=== PATIENT | male | born 1970 | race Two or more races ===

== ENCOUNTER 2017-02-15 14:17 | Emergency (ER) | payer OTHER ==
[2017-02-15 14:21] VITALS: TEMP 97.8; BMI 24.2
--- NOTE | 2017-02-15 15:42 | PDOC ---
History of Present Illness - General History Source: Patient Exam Limitations: No Limitations - History of Present Illness Initial Comments: 02/15/17 15:57 The patient is a 46 year old male with no significant past medical history who presents to the ED with cough, nasal congestion, sore throat, chest congestion, sneezing, runny nose and SOB on exertion since yesterday. He states that he woke up this morning with chest congestion, nasal congestion and SOB that has gotten better throughout the day. He reports chest pain when coughing or upon taking of a deep breath or turning to the left side. He reports yellow phlegm when coughing. He also reports diffuse body aches. He states that he took Nyquil PM yesterday to help with his symptoms. He denies any recent travel. SH - hookah smoker. Denies alcohol or illicit drug use. PMD - Dr. Burns <Rizwana Isaacs - Last Filed: 02/15/17 15:57> <John Vela - Last Filed: 02/15/17 16:48> - General Chief Complaint: Respiratory Stated Complaint: SOB, CHEST PAIN Past History <Rizwana Isaacs - Last Filed: 02/15/17 15:57> - Surgical History Abdominal Surgery: Yes (HEMMORRHOIDECTOMY) - Psycho/Social/Smoking Cessation Hx Anxiety: No Suicidal Ideation: No Smoking Status: No Smoking History: Never smoked Number of Cigarettes Smoked Daily: 1 Hx Alcohol Use: No Drug/Substance Use Hx: No Substance Use Type: None <John Vela - Last Filed: 02/15/17 16:48> - Past Medical History Allergies/Adverse Reactions: Allergies Allergy/AdvReac Type Severity Reaction Status Date / Time No Known Allergies Allergy Verified 02/15/17 14:21 Home Medications: Ambulatory Orders NK [No Known Home Medication] 02/15/17 Review of Systems - Review of Systems Constitutional: No: Chills, Fever, Night Sweats HEENTM: Yes: Nose Congestion, Throat Pain. No: Throat Swelling Respiratory: Yes: Cough. No: Shortness of Breath Cardiac (ROS): No: Chest Pain, Edema, Lightheadedness, Syncope ABD/GI: No: Diarrhea, Vomiting Integumentary: No: Rash Neurological: No: Headache All Other Systems: Reviewed and Negative <John Vela - Last Filed: 02/15/17 16:48> *Physical Exam - Vital Signs Last Vital Signs Temp Pulse Resp BP Pulse Ox 97.8 F 75 20 114/76 98 02/15/17 14:18 02/15/17 14:18 02/15/17 14:18 02/15/17 14:18 02/15/17 14:18 - Physical Exam Comments: 02/15/17 15:57 GENERAL: The patient is awake, alert, and fully oriented, in no acute distress. HEAD: Normal with no signs of trauma. EYES: Pupils equal, round and reactive to light, extraocular movements intact, sclera anicteric, conjunctiva clear with no pallor. ENT: Ears normal, nares patent, oropharynx clear without exudates. Moist mucous membranes. NECK: Normal range of motion, supple without lymphadenopathy, JVD, or masses. LUNGS: Breath sounds equal, clear to auscultation bilaterally. No wheeze/ crackles. HEART: Regular rate and rhythm, normal S1 and S2 without murmur or rub. ABDOMEN: Soft/nontender/nondistended. BS wnl. No guarding or rebound. No palpable masses. No hepatosplenomegaly. EXTREMITIES: Normal range of motion, no edema. No clubbing or cyanosis. No cords, erythema, or tenderness. NEUROLOGICAL: Cranial nerves II through XII grossly intact. Normal speech, normal gait. PSYCH: Normal mood, normal affect. SKIN: Warm, Dry, normal turgor, no rashes or lesions noted. <Rizwana Isaacs - Last Filed: 02/15/17 15:57> - Vital Signs Last Vital Signs Temp Pulse Resp BP Pulse Ox 97.8 F 75 20 114/76 98 02/15/17 14:18 02/15/17 14:18 02/15/17 14:18 02/15/17 14:18 02/15/17 14:18 <John Vela - Last Filed: 02/15/17 16:48> Heart Score/ECG Review - History History: Slightly suspicious - Electrocardiogram EKG: Normal - Age Age: 45-65 - Risk Factors Based on the list above the patient has:: No risk factors known - Troponin Troponin: </= normal limit - Score Heart Score - Total: 1 #1 ECG reviewed & interpreted by me at: 14:27 General ECG Interpretation: Sinus Rhythm, Normal Rate (73), Normal Intervals ( qtc 370), No acute ischemic changes (nonspecific T wave flattening v5) <John Vela - Last Filed: 02/15/17 16:48> ED Treatment Course - LABORATORY CBC & Chemistry Diagram: 02/15/17 15:58 02/15/17 16:07 - RADIOLOGY Radiology Studies Ordered: Category Date Time Status CHEST PA & LAT [RAD] Stat Radiology 02/15/17 15:41 Ordered <John Vela - Last Filed: 02/15/17 16:48> Medical Decision Making - Medical Decision Making 02/15/17 15:54 A portion of this note was documented by scribe services under my direction. I have reviewed the details of the note, within reason, and agree with the documentation with the following case summary and management plan written by me. 46-year-old male with no severe past medical history presents with URI symptoms of nasal congestion, sore throat, cough, upper body aches since yesterday. Presents today secondary to chest discomfort with coughing and sneezing, denies any history of exertional chest pain or dyspnea, no PE risk factors, no personal or family history of cardiac disease at an early age. Denies any smoking or drug use. Vital signs normal. Well-appearing. Occasional dry cough. Lungs are clear No edema 46-year-old male with likely viral URI/bronchitis, rule out pneumonia/influenza , not consistent with ACS. Labs, EKG Chest x-ray Influenza swab Reassurance, symptomatic treatment 02/15/17 16:41 WBC 12.9 with normal differential. Influenza negative. Chemistries/troponin pending. CXR pending. Patient was signed out to the oncoming ED physician to follow-up the results, reassess the patient, and dispo accordingly. <John Vela - Last Filed: 02/15/17 16:48> *DC/Admit/Observation/Transfer - Attestations Scribe Attestion: 02/15/17 15:58 Documentation prepared by MANINDER Tompkins, acting as medical assistant ob gyn for John Vela MD. <Rizwana Isaacs - Last Filed: 02/15/17 15:57> <John Vela - Last Filed: 02/15/17 16:48> Diagnosis at time of Disposition: Viral upper respiratory infection - Discharge Dispostion Condition at time of disposition: Stable - Referrals Referrals: Zak Burns [Primary Care Provider] -
[2017-02-15] MEDS ORDERED: KETOROLAC TROMETHAMINE 30 MG/1 ML VIAL IVPUSH ONE (15:54)
[2017-02-15] MEDS ORDERED: KETOROLAC TROMETHAMINE 30 MG/1 ML VIAL ONE (15:56)
[2017-02-15 16:11] LABS: BASOPHIL 0.3 % (0-2.0); EOSINOPHIL 1.3 % (0-4.5); MCH 29.3 pg (25.7-33.7); MCHC 33.8 g/dl (32.0-35.9); MEAN CELL VOLUME 86.7 fl (80-96); MEAN PLT VOLUME 8.3 fl (7.5-11.1); NEUTROPHILS 79.3 % (42.8-82.8); PLATELET COUNT 150 K/MM3 (134-434); RDW 13.8 % (11.9-15.9); WHITE BLOOD COUNT 12.9 K/mm3 (4.0-10.0)
[2017-02-15 16:32] LABS: INR 1.05 (0.82-1.09); PROTHROMBIN TIME (PATIENT) 11.6 SEC (9.98-11.88)
[2017-02-15 16:39] LABS: ALBUMIN 3.7 g/dl (3.4-5.0); ANION GAP 7 (8-16); BILIRUBIN,TOTAL 0.5 mg/dL (0.2-1.0); CALCIUM 8.2 mg/dL (8.5-10.1); CO2 26 mmol/L (21-32); GLUCOSE,RANDOM 89 mg/dL (74-106); MAGNESIUM 2.1 mg/dL (1.8-2.4); SGOT/AST 14 U/L (15-37); SGPT/ALT 17 U/L (12-78); TOT PROT 7.7 g/dl (6.4-8.2)
[2017-02-15 16:42] LABS: ALK PHOS 92 U/L (45-117); TROPONIN I < 0.02 ng/ml (0.00-0.05)
[2017-02-15] MEDS ORDERED: AZITHROMYCIN 250 MG TABLET (FP) PO ONE (17:27)
--- NOTE | 2017-02-15 17:33 | PDOC ---
*Physical Exam - Vital Signs Last Vital Signs Temp Pulse Resp BP Pulse Ox 97.8 F 75 20 114/76 98 02/15/17 14:18 02/15/17 14:18 02/15/17 14:18 02/15/17 14:18 02/15/17 14:18 ED Treatment Course - LABORATORY CBC & Chemistry Diagram: 02/15/17 15:58 02/15/17 16:07 - ADDITIONAL ORDERS Additional order review: Laboratory Results 02/15/17 02/15/17 16:07 16:07 INR 1.05 Sodium 139 Potassium 4.1 Chloride 106 Carbon Dioxide 26 Anion Gap 7 L BUN 14 Creatinine 1.0 Creat Clearance w eGFR > 60 Random Glucose 89 Calcium 8.2 L Magnesium 2.1 Total Bilirubin 0.5 AST 14 L ALT 17 Alkaline Phosphatase 92 Creatine Kinase 115 Troponin I < 0.02 Total Protein 7.7 Albumin 3.7 02/15/17 16:07 Influenza Types A,B Antigen (PAMELA) - Final Nasopharyngeal Swab - Final 02/15/17 15:58 RBC 4.95 MCV 86.7 MCHC 33.8 RDW 13.8 MPV 8.3 Neutrophils % 79.3 Lymphocytes % 12.1 D Monocytes % 7.0 Eosinophils % 1.3 Basophils % 0.3 - Medications Given in the ED: ED Medications Discontinued Medications Generic Name Dose Route Start Last Admin Trade Name Octavia PRN Reason Stop Dose Admin Ketorolac Tromethamine 30 mg 02/15/17 15:54 02/15/17 16:06 Toradol Injection - IVPUSH 02/15/17 15:55 30 mg ONCE ONE Administration Medical Decision Making - Medical Decision Making 02/15/17 17:29 Sign-out received from outgoing Emergency Physician Dr. Vela Pt interviewed and examined Ancillary studies reviewed Case discussed in detail with oncoming Emergency Physician including history, physical exam and ancillary studies. CBC, BMP 02/15/17 15:58 02/15/17 16:07 CMP Sodium 139 mmol/L (136-145) 02/15/17 16:07 Potassium 4.1 mmol/L (3.5-5.1) 02/15/17 16:07 Chloride 106 mmol/L (98-107) 02/15/17 16:07 Carbon Dioxide 26 mmol/L (21-32) 02/15/17 16:07 Anion Gap 7 (8-16) L 02/15/17 16:07 BUN 14 mg/dL (7-18) 02/15/17 16:07 Creatinine 1.0 mg/dL (0.7-1.3) 02/15/17 16:07 Creat Clearance w eGFR > 60 (>60) 02/15/17 16:07 Random Glucose 89 mg/dL (74-106) 02/15/17 16:07 Calcium 8.2 mg/dL (8.5-10.1) L 02/15/17 16:07 Magnesium 2.1 mg/dL (1.8-2.4) 02/15/17 16:07 Total Bilirubin 0.5 mg/dL (0.2-1.0) 02/15/17 16:07 AST 14 U/L (15-37) L 02/15/17 16:07 ALT 17 U/L (12-78) 02/15/17 16:07 Alkaline Phosphatase 92 U/L (45-117) 02/15/17 16:07 Creatine Kinase 115 IU/L (39-308) 02/15/17 16:07 Troponin I < 0.02 ng/ml (0.00-0.05) 02/15/17 16:07 Total Protein 7.7 g/dl (6.4-8.2) 02/15/17 16:07 Albumin 3.7 g/dl (3.4-5.0) 02/15/17 16:07 Influenza swab negative. Chest xray reviewed by me, pending official radiology read. No infiltrates Will treat as bronchitis. Azithromycin. Supportive care Follow up with PMD. Copy of the results given to the patient. I discussed the physical exam findings, ancillary test results and final diagnoses with the patient. I answered all of the patient's questions. The patient was satisfied with the care received and felt comfortable with the discharge plan and treatment plan. The patient will call their primary care physician within 24 hours to arrange follow-up and will return to the Emergency Department with any new, persistant or worsening symptoms. *DC/Admit/Observation/Transfer Diagnosis at time of Disposition: Bronchitis - Discharge Dispostion Disposition: HOME Condition at time of disposition: Improved Admit: No - Prescriptions Prescriptions: Azithromycin 250 mg PO DAILY #4 tablet Naproxen [Naprosyn -] 500 mg PO BID PRN #14 tablet PRN Reason: Pain/Fever - Referrals Referrals: Zak Burns [Primary Care Provider] - - Patient Instructions Printed Discharge Instructions: DI for Acute Bronchitis Additional Instructions: Please take 500 mg naproxen every 12 hours as needed for fever/pain. Please complete the azithromycin (antibiotic) daily for the next 4 days. Please finish all of the antibiotics. Drink plenty of fluids and rest. It will likely take several days before the symptoms improve. - Post Discharge Activity Work/School Note: Back to Work
[2017-02-15] MEDS ORDERED: AZITHROMYCIN 250 MG TABLET (FP) ONE (17:45)
[2017-02-15 17:48] VITALS: BP 111/78; PULSE 71
--- NOTE | 2017-02-16 16:22 | EKG ---
Test Reason : Blood Pressure : / mmHG Vent. Rate : 073 BPM Atrial Rate : 073 BPM P-R Int : 120 ms QRS Dur : 086 ms QT Int : 336 ms P-R-T Axes : 050 -06 000 degrees QTc Int : 370 ms NORMAL SINUS RHYTHM NONSPECIFIC T WAVE ABNORMALITY ABNORMAL ECG WHEN COMPARED WITH ECG OF 07-NOV-2014 21:46, VENT. RATE HAS INCREASED BY 25 BPM Confirmed by JOHN ROCKWELL MD ([id number]) on 02/16/2017 4:21:38 PM Referred By: Confirmed By:JOHN ROCKWELL MD
== END 2017-02-15 17:48 | disposition home or self-care (01) ==
LOC: JER 14:17
PROC: 3E03329 Introduction of Other Anti-infective into Peripheral Vein, Percutaneous Approach (ICD-10-PCS; principal; 2017-02-15)
PROC: 3E0333Z Introduction of Anti-inflammatory into Peripheral Vein, Percutaneous Approach (ICD-10-PCS; 2017-02-15)
DX: J06.9 Acute upper respiratory infection, unspecified (principal); B97.89 Other viral agents as the cause of diseases classified elsewhere
CPT/HCPCS: 36415; 71020-TC; 80053; 82550; 83735; 84484; 85025; 85610; 87804; 93005; 93010; 96374; 96375; 99285-25

== ENCOUNTER 2018-04-06 23:44 | Emergency (ER) | payer OTHER ==
[2018-04-07 00:31] VITALS: BP 121/78; PULSE 85; TEMP 97.5; BMI 25.8
--- NOTE | 2018-04-07 00:44 | PDOC ---
History of Present Illness - General Chief Complaint: Ear Problem Stated Complaint: EAR PAIN Time Seen by Provider: 04/07/18 00:10 History Source: Patient Exam Limitations: No Limitations - History of Present Illness Initial Comments: 04/07/18 00:41 Best Contact:[phone] PCP:N/a Pmhx:N/A Pshx:N/A Allergies:NKDA FH:N/A Social Hx: Cigarettes/ social Alcohol/ social Drugs/0 LMP:N/A 48-year-old male presents to the emergency department complaining of bilateral decreased hearing times one week without fever, chills, nausea/vomiting, headache, dizziness, lightheadedness, nasal congestion, rhinorrhea, sore throat PROCEDURE NOTE eloped prior to procedure Past History - Past Medical History Allergies/Adverse Reactions: Allergies Allergy/AdvReac Type Severity Reaction Status Date / Time No Known Allergies Allergy Verified 04/07/18 00:10 Home Medications: Ambulatory Orders Azithromycin 250 mg PO DAILY #4 tablet 02/15/17 Naproxen [Naprosyn -] 500 mg PO BID PRN #14 tablet 02/15/17 - Surgical History Abdominal Surgery: Yes (HEMMORRHOIDECTOMY) - Suicide/Smoking/Psychosocial Hx Smoking Status: No Smoking History: Never smoked Have you smoked in the past 12 months: No Number of Cigarettes Smoked Daily: 1 Information on smoking cessation initiated: No Hx Alcohol Use: No Drug/Substance Use Hx: No Substance Use Type: None Review of Systems - Review of Systems Able to Perform ROS?: Yes Comments:: 04/07/18 00:42 CONSTITUTIONAL: Absent: fever, chills, diaphoresis, generalized weakness, malaise, loss of appetite HEENT: +B/L ear decrease hearing Absent: rhinorrhea, nasal congestion, throat pain, throat swelling, difficulty swallowing, mouth swelling, ear pain, eye pain, visual Changes CARDIOVASCULAR: Absent: chest pain, loss of consciousness, palpitations, irregular heart rate, peripheral edema RESPIRATORY: Absent: cough, shortness of breath, dyspnea with exertion, orthopnea, wheezing, stridor, hemoptysis GASTROINTESTINAL: Absent: abdominal pain, abdominal distension, nausea, vomiting, diarrhea, constipation, melena, hematochezia GENITOURINARY: Absent: dysuria, frequency, urgency, hesitancy, hematuria, flank pain, genital pain MUSCULOSKELETAL: Absent: myalgia, arthralgia, joint swelling SKIN: Absent: rash, itching, pallor Is the patient limited Japanese proficient: No *Physical Exam - Vital Signs Last Vital Signs Temp Pulse Resp BP Pulse Ox 97.5 F L 85 19 121/78 98 04/07/18 00:05 04/07/18 00:05 04/07/18 00:05 04/07/18 00:05 04/07/18 00:05 - Physical Exam Comments: 04/07/18 00:43 GENERAL: Well developed, well nourished. Awake and alert. No acute distress. HEENT: +B/L cerumen impaction Normocephalic, atraumatic. PERRLA, EOMI. No conjunctival pallor. Sclera are non- icteric. Moist mucous membranes. Oropharynx is clear. NECK: Supple. Full ROM. No JVD. Carotid pulses 2+ and symmetric, without bruits. No thyromegaly. No lymphadenopathy. CARDIOVASCULAR: Regular rate and rhythm. No murmurs, rubs, or gallops. Distal pulses are 2+ and symmetric. PULMONARY: No evidence of respiratory distress. Lungs clear to auscultation bilaterally. No wheezing, rales or rhonchi. ABDOMINAL: Soft. Non-tender. Non-distended. No rebound or guarding. No organomegaly. Normoactive bowel sounds. MUSCULOSKELETAL Normal range of motion at all joints. No bony deformities or tenderness. No CVA tenderness. EXTREMITIES: No cyanosis. No clubbing. No edema. No calf tenderness. SKIN: Warm and dry. Normal capillary refill. No rashes. No jaundice. *DC/Admit/Observation/Transfer Diagnosis at time of Disposition: Impacted cerumen of both ears - Discharge Dispostion Disposition: ELOPED Condition at time of disposition: Fair - Referrals - Patient Instructions - Post Discharge Activity
== END 2018-04-07 02:09 | disposition left against medical advice (07) ==
LOC: JER 23:44
DX: H61.23 Impacted cerumen, bilateral (principal)
CPT/HCPCS: 99281-25

== ENCOUNTER 2018-08-28 05:10 | Emergency (ER) | payer OTHER ==
[2018-08-28] MEDS ORDERED: ALBUTEROL SO4 2.5/IPRATROPIUM 0.5 INH SOL 3 ML VIAL.NEB. NEB ONE ×3 (06:11→07:12)
--- NOTE | 2018-08-28 06:32 | PDOC ---
History of Present Illness - General Chief Complaint: Respiratory Stated Complaint: PAIN,COUGH Time Seen by Provider: 08/28/18 06:00 - History of Present Illness Initial Comments: 48 yo M w a hx of bronchitis is here with 2 days of shortness of breath, difficulty breathing, pleuritic chest pain, throat pain, and a productive cough. He states all of his symptoms began 2 days ago and have progressively worsened to the point where it is difficult for him to sleep. He came into the ER today because he wanted the shortness of breath to stop. He denies having a history of asthma but states many of his siblings have asthma. He denies having a history of COPD but does smoke hooka every day and had bronchitis once in the past. He denies having fevers, chills or infections. Denies headache, neck pain, back pain, abdominal pain, leg or ankle swelling. PCP: None Allergies: NKA, NKDA Social Hx: smokes hooka every day after work. Denies using alcohol or illicit substances. Past History - Past Medical History Allergies/Adverse Reactions: Allergies Allergy/AdvReac Type Severity Reaction Status Date / Time No Known Allergies Allergy Verified 08/28/18 06:33 Home Medications: Ambulatory Orders Azithromycin 250 mg PO DAILY #4 tablet 02/15/17 Naproxen [Naprosyn -] 500 mg PO BID PRN #14 tablet 02/15/17 - Surgical History Abdominal Surgery: Yes (HEMMORRHOIDECTOMY) - Suicide/Smoking/Psychosocial Hx Smoking Status: No Smoking History: Never smoked Have you smoked in the past 12 months: No Number of Cigarettes Smoked Daily: 1 Hx Alcohol Use: No Drug/Substance Use Hx: No Substance Use Type: None Review of Systems - Review of Systems Comments:: CONSTITUTIONAL: Absent: fever, no chills, no fatigue EYES: Absent: visual changes ENT: Absent: ear pain, no sore throat CARDIOVASCULAR: Present: Chest pain Absent: no palpitations RESPIRATORY: Present: cough, SOB GI: Absent: abdominal pain, no nausea, no vomiting, no constipation, no diarrhea GENITOURINARY: Absent: dysuria, no frequency, no hematuria MUSKULOSKELETAL: Absent: back pain, no arthralgia, no myalgia SKIN: Absent: rash NEURO: Absent: headache *Physical Exam - Physical Exam Comments: GENERAL: Well-appearing, well-nourished. No apparent distress. HEENT: The posterior oropharynx is erythematous. There are shotty lymph nodes on the R neck. Normocephalic, atraumatic. PERRL, EOM intact. CARDIOVASCULAR: Normal S1, S2. Regular rate and rhythm. PULMONARY: There are expiratory wheezes In the right lung [place]. No crackles, rales or rhonchi. ABDOMEN: Soft, non-distended, non-tender. EXTREMITIES: Normal ROM in all four extremities. No gross deformities. SKIN: Warm, dry. No rash NEUROLOGICAL: No focal neurological deficits. ED Treatment Course - LABORATORY CBC & Chemistry Diagram: 08/28/18 06:24 08/28/18 06:24 - RADIOLOGY Radiology Studies Ordered: Category Date Time Status CHEST PA & LAT [RAD] Stat Radiology 08/28/18 06:11 Ordered Medical Decision Making - Medical Decision Making 48 yo M w a hx of bronchitis is here with 2 days of shortness of breath, difficulty breathing, pleuritic chest pain, throat pain, and a productive cough. Vitals WNL. satting at 100% on RA. PE notable for R sided wheezing. DD includes but not limited to: Asthma, bronchitis, COPD, ACS, PNA, pneumothorax , URI Plan: Cbc, Cmp, Vbg, trop, Ekg, CXR, duoneb, re-assess. Patient is well appearing and likely does not need to stay in hospital after supportive symptomatic treatment. Signing out patient to day team. *DC/Admit/Observation/Transfer Diagnosis at time of Disposition: Dyspnea, URI (upper respiratory infection) - Discharge Dispostion Condition at time of disposition: Fair - Referrals Referrals: Ed Patten MD [Primary Care Provider] - - Patient Instructions - Post Discharge Activity
[2018-08-28 06:33] VITALS: TEMP 97.9; BMI 25.8
[2018-08-28 06:42] LABS: BASO % 0.9 % (0-2.0); EOS % 1.6 % (0-4.5); HEMATOCRIT 42.9 % (35.4-49); HEMOGLOBIN 14.7 GM/dL (11.7-16.9); LYMPH % 23.5 % (8-40); MCH 29.5 pg (25.7-33.7); MCHC 34.2 g/dl (32.0-35.9); MEAN CELL VOLUME 86.3 fl (80-96); MEAN PLT VOLUME 8.1 fl (7.5-11.1); MONO % 7.5 % (3.8-10.2); NEUT % 66.5 % (42.8-82.8); PLATELET COUNT 194 K/MM3 (134-434); RBC 4.97 M/mm3 (4.00-5.60); RDW 13.4 % (11.9-15.9); WHITE BLOOD COUNT 10.3 K/mm3 (4.0-10.0)
[2018-08-28 06:44] LABS: VENOUS PC02 51.1 mmHg (38-52); VENOUS PH 7.33 (7.32-7.42); VENOUS PO2 34.1 mmHg (28-48)
[2018-08-28 07:09] LABS: ALBUMIN 3.4 g/dl (3.4-5.0); ALK PHOS 100 U/L (45-117); ANION GAP 7 MMOL/L (8-16); BILIRUBIN,TOTAL 0.3 mg/dL (0.2-1); BLOOD UREA NITROGEN 20 mg/dL (7-18); CALCIUM 8.6 mg/dL (8.5-10.1); CHLORIDE 105 mmol/L (98-107); CO2 28 mmol/L (21-32); CREATININE 1.1 mg/dL (0.55-1.3); GLUCOSE,RANDOM 133 mg/dL (74-106); POTASSIUM 3.9 mmol/L (3.5-5.1); SGOT/AST 20 U/L (15-37); SGPT/ALT 19 U/L (13-61); SODIUM 140 mmol/L (136-145); TOT PROT 7.8 g/dl (6.4-8.2)
--- NOTE | 2018-08-28 07:26 | PDOC ---
*Physical Exam - Vital Signs Last Vital Signs Temp Pulse Resp BP Pulse Ox 97.9 F 79 18 100/65 97 08/28/18 05:15 08/28/18 05:15 08/28/18 05:15 08/28/18 05:15 08/28/18 05:15 ED Treatment Course - LABORATORY CBC & Chemistry Diagram: 08/28/18 06:24 08/28/18 06:24 - ADDITIONAL ORDERS Additional order review: Laboratory Results 08/28/18 08/28/18 06:24 06:24 VBG pH 7.33 POC VBG pCO2 51.1 POC VBG pO2 34.1 Mixed VBG HCO3 26.2 H Sodium 140 Potassium 3.9 Chloride 105 Carbon Dioxide 28 Anion Gap 7 L BUN 20 H Creatinine 1.1 Creat Clearance w eGFR > 60 Random Glucose 133 H Calcium 8.6 Total Bilirubin 0.3 AST 20 ALT 19 Alkaline Phosphatase 100 Troponin I < 0.02 Total Protein 7.8 Albumin 3.4 08/28/18 06:24 RBC 4.97 MCV 86.3 MCHC 34.2 RDW 13.4 MPV 8.1 Neutrophils % 66.5 Lymphocytes % 23.5 D Monocytes % 7.5 Eosinophils % 1.6 Basophils % 0.9 - Medications Given in the ED: ED Medications Discontinued Medications Generic Name Dose Route Start Last Admin Trade Name Octavia PRN Reason Stop Dose Admin Albuterol/Ipratropium 1 amp 08/28/18 06:11 08/28/18 06:14 Duoneb - NEB 08/28/18 06:12 1 amp ONCE ONE Administration Medical Decision Making - Medical Decision Making 08/28/18 07:26 Pt signed out to me by Dr. Al 48 yo M w a hx of bronchitis is here with 2 days of shortness of breath, difficulty breathing, pleuritic chest pain, throat pain, and a productive cough. COPD v. Asthma v. URI Waiting for troponin. 08/28/18 07:26 Trop negative. CXR: no acute pathology. EKG: nsr. PT most likely has URI. Pt hemodynamically stable, afebrile, can be dc home. Will give return precautions. Pt agreed to plan. *DC/Admit/Observation/Transfer Diagnosis at time of Disposition: Dyspnea Qualifiers: Dyspnea type: shortness of breath Qualified Code(s): R06.02 - Shortness of breath URI (upper respiratory infection) Qualifiers: URI type: unspecified viral URI Qualified Code(s): J06.9 - Acute upper respiratory infection, unspecified - Discharge Dispostion Disposition: HOME Condition at time of disposition: Good - Referrals Referrals: Ed Patten MD [Primary Care Provider] - - Patient Instructions Printed Discharge Instructions: DI for Viral Upper Respiratory Infection -- Adult Additional Instructions: You were seen here today for evaluation of shortness of breath and cough. All of your tests were normal. You have an upper respiratory tract infection most likely caused by a virus. Try to stay hydrated. You can take [id number] cough medications as needed. Come back to the emergency room if: cough gets worse, it becomes harder for you to breathe, you develop fever, chest pain gets worse, cough gets worse, or if any new concerning symptom develops. Thank you - Post Discharge Activity
[2018-08-28 07:59] VITALS: BP 104/80; PULSE 77
--- NOTE | 2018-08-28 08:37 | PDOC ---
Attending Attestation - Resident Resident Name: Edgar Martin - ED Attending Attestation I have performed the following: I have examined & evaluated the patient, The case was reviewed & discussed with the resident, I agree w/resident's findings & plan, Exceptions are as noted - HPI HPI: 08/28/18 08:36 2 days of productive cough, chest pain with cough, and sob - Physicial Exam PE: 08/28/18 08:36 Well appearing, NAD, AOx3 ? R sided wheeze on ausculcation - Medical Decision Making 08/28/18 08:37 Likely URI, consider pna, acs unlikely f/u labs, cxr, ekg
--- NOTE | 2018-08-28 12:31 | EKG ---
Test Reason : Blood Pressure : / mmHG Vent. Rate : 072 BPM Atrial Rate : 072 BPM P-R Int : 116 ms QRS Dur : 082 ms QT Int : 348 ms P-R-T Axes : 057 -35 -11 degrees QTc Int : 381 ms NORMAL SINUS RHYTHM LEFT AXIS DEVIATION ABNORMAL ECG Confirmed by MD BENITO, IKER ([id number]) on 08/28/2018 12:31:04 PM Referred By: Confirmed By:IKER OLIVER MD
== END 2018-08-28 07:59 | disposition home or self-care (01) ==
LOC: JER 05:10
PROC: 3E0F7GC Introduction of Other Therapeutic Substance into Respiratory Tract, Via Natural or Artificial Opening (ICD-10-PCS; principal; 2018-08-28)
DX: J06.9 Acute upper respiratory infection, unspecified (principal); R06.00 Dyspnea, unspecified
CPT/HCPCS: 36415; 71046-TC-FY; 80053; 82803; 84484; 85025; 93005; 93010; 94640; 99283-25

== ENCOUNTER 2018-11-19 11:25 | Emergency (ER) | payer OTHER ==
[2018-11-19 11:31] VITALS: BP 117/87; PULSE 66; TEMP 98.2; BMI 25.8
[2018-11-19] MEDS ORDERED: PANTOPRAZOLE SODIUM 40 MG VIAL IVPUSH ONE (11:43)
[2018-11-19] MEDS ORDERED: ACETAMINOPHEN 1000 MG/100 ML VIAL (NON FORMULARY) IVPB ONE (11:43)
[2018-11-19] MEDS ORDERED: FAMOTIDINE 20 MG/50 ML IVPB 20 MG/50 ML MG IVPB ONE ×2 (11:43→11:58)
[2018-11-19] MEDS ORDERED: SODIUM CHLORIDE 1,000 ML IV STA (11:43)
[2018-11-19] MEDS ORDERED: SUCRALFATE 1 GM TABLET (FP) PO ONE (11:43)
[2018-11-19] MEDS ORDERED: SUCRALFATE 1 GM/10 ML UNIT DOSE CUPS ONE (11:58)
[2018-11-19] MEDS ORDERED: ACETAMINOPHEN INJECTION 100 ML IVPB ONE (11:58)
[2018-11-19] MEDS ORDERED: PANTOPRAZOLE SODIUM 40 MG VIAL ONE (11:59)
--- NOTE | 2018-11-19 12:01 | PDOC ---
History of Present Illness - General Chief Complaint: Pain Stated Complaint: ABD PAIN Time Seen by Provider: 11/19/18 11:31 History Source: Patient Exam Limitations: No Limitations - History of Present Illness Initial Comments: 11/19/18 11:57 48 year old male with no PMH p/w epigastric pain x 2 days. Pt reported that he eats food typically heavier in oils. Noticed that some foods made the pain worse. Radiates to his throat, burning like sensation. No exertional component. no chest pain. No difficulty breathing, fevers, chills, diarrhea, vomiting. Took tums which relieved pain, but symptoms persisted. Past History - Past Medical History Allergies/Adverse Reactions: Allergies Allergy/AdvReac Type Severity Reaction Status Date / Time No Known Allergies Allergy Verified 11/19/18 11:27 Home Medications: Ambulatory Orders Famotidine [Pepcid] 20 mg PO BID PRN #20 tablet 11/19/18 Pantoprazole Sodium [Protonix] 40 mg PO DAILY #30 tablet. 11/19/18 COPD: No - Surgical History Abdominal Surgery: Yes (HEMMORRHOIDECTOMY) - Suicide/Smoking/Psychosocial Hx Smoking Status: No Smoking History: Current every day smoker Have you smoked in the past 12 months: No Number of Cigarettes Smoked Daily: 1 Information on smoking cessation initiated: Yes Hx Alcohol Use: No Drug/Substance Use Hx: No Substance Use Type: None Review of Systems - Review of Systems Able to Perform ROS?: Yes Comments:: 11/19/18 11:58 GENERAL/CONSTITUTIONAL: [No fever or chills. No weakness. No weight change.] HEAD, EYES, EARS, NOSE AND THROAT: [No change in vision. No ear pain or discharge. No sore throat.] CARDIOVASCULAR: [No chest pain or shortness of breath.] RESPIRATORY: [No cough, wheezing, or hemoptysis.] GASTROINTESTINAL: [No nausea, vomiting, diarrhea or constipation. No rectal bleeding.] + abdominal pain GENITOURINARY: [No dysuria, frequency, or change in urination.] MUSCULOSKELETAL: [No joint or muscle swelling or pain. No neck or back pain.] SKIN AND BREASTS: [No rash or easy bruising.] NEUROLOGIC: [No headache, vertigo, loss of consciousness, or loss of sensation.] PSYCHIATRIC: [No depression or anxiety.] ENDOCRINE: [No increased thirst. No abnormal weight change.] HEMATOLOGIC/LYMPHATIC: [No anemia, easy bleeding, or history of blood clots.] ALLERGIC/IMMUNOLOGIC: [No hives or skin allergy. No latex allergy.] *Physical Exam - Vital Signs Last Vital Signs Temp Pulse Resp BP Pulse Ox 98.2 F 66 18 117/87 99 11/19/18 11:25 11/19/18 11:25 11/19/18 11:25 11/19/18 11:25 11/19/18 11:25 - Physical Exam Comments: 11/19/18 11:59 GENERAL: Awake, alert, and fully oriented, in no acute distress HEAD: No signs of trauma EYES: PERRLA, EOMI, sclera anicteric, conjunctiva clear ENT: Auricles normal inspection, hearing grossly normal, nares patent, oropharynx clear without exudates. Moist mucosa NECK: Normal ROM, supple, no lymphadenopathy, JVD, or masses LUNGS: Breath sounds equal, clear to auscultation bilaterally. No wheezes, and no crackles HEART: Regular rate and rhythm, normal S1 and S2, no murmurs, rubs or gallops ABDOMEN: Soft, No guarding, no rebound. No masses. TTP epigastric. Negative cristobal. EXTREMITIES: Normal range of motion, no edema. No clubbing or cyanosis. No cords, erythema, or tenderness NEUROLOGICAL: Cranial nerves II through XII grossly intact. Normal speech, normal gait SKIN: Warm, Dry, normal turgor, no rashes or lesions noted. Moderate Sedation - Procedure Monitoring Vital Signs: Procedure Monitoring Vital Signs Temperature 98.2 F 11/19/18 11:25 Pulse Rate 66 11/19/18 11:25 Respiratory Rate 18 11/19/18 11:25 Blood Pressure 117/87 11/19/18 11:25 O2 Sat by Pulse Oximetry (%) 99 11/19/18 11:25 Heart Score/ECG Review #1 ECG reviewed & interpreted by me at: 12:05 11/19/18 13:06 NSR 58, no std/hermila, normal axis, normal intervals, TWI III, QTC 380 msec ED Treatment Course - LABORATORY CBC & Chemistry Diagram: 11/19/18 11:56 11/19/18 11:56 Medical Decision Making - Medical Decision Making 11/19/18 12:00 Vital Signs Temp Pulse Resp BP Pulse Ox 98.2 F 66 18 117/87 99 11/19/18 11:25 11/19/18 11:25 11/19/18 11:25 11/19/18 11:25 11/19/18 11:25 I suspect pt has gastritis/GERD. Never had an endoscopy. Will however obtain an ECG, labs including lipase. Trial GERD medications. If pt feels better and w/u negative, I feel comfortable d/cing patient home with meds and f/u with GI. 11/19/18 13:16 CBC, BMP 11/19/18 11:56 11/19/18 11:56 CMP Sodium 137 mmol/L (136-145) 11/19/18 11:56 Potassium 4.3 mmol/L (3.5-5.1) 11/19/18 11:56 Chloride 102 mmol/L (98-107) 11/19/18 11:56 Carbon Dioxide 27 mmol/L (22-28) 11/19/18 11:56 Anion Gap 8 MMOL/L (8-16) 11/19/18 11:56 BUN 14 mg/dl (7-18) 11/19/18 11:56 Creatinine 1.1 mg/dl (0.6-1.3) 11/19/18 11:56 Creat Clearance w eGFR > 60 (>60) 11/19/18 11:56 Random Glucose 109 mg/dl (74-106) H 11/19/18 11:56 Calcium 9.1 mg/dl (8.4-10.2) 11/19/18 11:56 Total Bilirubin 0.4 mg/dl (0.2-1.0) 11/19/18 11:56 AST 18 U/L (10-42) 11/19/18 11:56 ALT 11 U/L (10-40) 11/19/18 11:56 Alkaline Phosphatase 67 U/L (32-92) 11/19/18 11:56 Troponin I < 0.03 ng/ml (0.00-0.06) 11/19/18 11:56 Total Protein 7.4 g/dl (6.4-8.3) 11/19/18 11:56 Albumin 4.0 g/dl (3.5-5.0) 11/19/18 11:56 Lipase 262 U/L (73-393) 11/19/18 11:56 Pt reports complete relief with GERD medications. I discussed the physical exam findings, ancillary test results and final diagnoses with the patient. I answered all of the patient's questions. The patient was satisfied with the care received and felt comfortable with the discharge plan and treatment plan. The patient will call their primary care physician within 24 hours to arrange follow-up and will return to the Emergency Department with any new, persistant or worsening symptoms. *DC/Admit/Observation/Transfer Diagnosis at time of Disposition: Gastritis Qualifiers: Gastritis type: unspecified gastritis Chronicity: acute Gastritis bleeding: without bleeding Qualified Code(s): K29.00 - Acute gastritis without bleeding - Discharge Dispostion Disposition: HOME Condition at time of disposition: Stable - Prescriptions Prescriptions: Famotidine [Pepcid] 20 mg PO BID PRN #20 tablet PRN Reason: GERD Pantoprazole Sodium [Protonix] 40 mg PO DAILY #30 tablet.dr - Referrals Referrals: Ed Patten MD [Primary Care Provider] - Arik Alex MD [Staff Physician] - - Patient Instructions Printed Discharge Instructions: DI for Gastroesophageal Reflux Disease (GERD) Additional Instructions: Take 40 mg protonix daily as your maintenance medication. For additional relief, take a tablet of pepcid every 12 hours as needed. Please monitor your diet. Call and schedule an appointment with your GI doctor. Please give a copy of your blood work and EKG to your doctor. - Post Discharge Activity
[2018-11-19 12:08] LABS: BASO % 0.9 % (0-2.0); EOS % 0.8 % (0-4.5); HEMATOCRIT 43.5 % (35.4-49); HEMOGLOBIN 14.3 GM/dl (11.7-16.9); LYMPH % 14.7 % (8-40); MCH 29.1 pg (25.7-33.7); MEAN CELL VOLUME 88.4 fl (80-96); MEAN PLT VOLUME 7.7 fl (7.5-11.1); MONO % 5.9 % (3.8-10.2); NEUT % 77.7 % (42.8-82.8); PLATELET COUNT 217 K/MM3 (134-434); RBC 4.92 M/mm3 (4.00-5.60); RDW 12.2 % (11.9-15.9); WHITE BLOOD COUNT 9.2 K/mm3 (4.0-10.8)
[2018-11-19 12:23] LABS: ALK PHOS 67 U/L (32-92); ANION GAP 8 MMOL/L (8-16); BILIRUBIN,TOTAL 0.4 mg/dl (0.2-1.0); BLOOD UREA NITROGEN 14 mg/dl (7-18); CALCIUM 9.1 mg/dl (8.4-10.2); CHLORIDE 102 mmol/L (98-107); CO2 27 mmol/L (22-28); CREATININE 1.1 mg/dl (0.6-1.3); GLUCOSE,RANDOM 109 mg/dl (74-106); POTASSIUM 4.3 mmol/L (3.5-5.1); SGOT/AST 18 U/L (10-42); SGPT/ALT 11 U/L (10-40); SODIUM 137 mmol/L (136-145); TOT PROT 7.4 g/dl (6.4-8.3)
[2018-11-19 12:55] LABS: LIPASE 262 U/L (73-393)
--- NOTE | 2018-11-20 10:06 | EKG ---
Test Reason : Blood Pressure : / mmHG Vent. Rate : 058 BPM Atrial Rate : 058 BPM P-R Int : 116 ms QRS Dur : 082 ms QT Int : 388 ms P-R-T Axes : 062 -13 -09 degrees QTc Int : 380 ms SINUS BRADYCARDIA OTHERWISE NORMAL ECG WHEN COMPARED WITH ECG OF 28-AUG-2018 07:38, NONSPECIFIC T WAVE ABNORMALITY NO LONGER EVIDENT IN ANTEROLATERAL LEADS Confirmed by Evans Glover MD ([id number]) on 11/20/2018 10:05:51 AM Referred By: HERVE OMER Confirmed By:Evans Glover MD
== END 2018-11-19 13:35 | disposition home or self-care (01) ==
LOC: FER 11:25 → SUPCPDRO 11:25 → FER 13:35
PROC: 3E033NZ Introduction of Analgesics, Hypnotics, Sedatives into Peripheral Vein, Percutaneous Approach (ICD-10-PCS; principal; 2018-11-19)
PROC: 3E033GC Introduction of Other Therapeutic Substance into Peripheral Vein, Percutaneous Approach (ICD-10-PCS; 2018-11-19)
PROC: 3E0337Z Introduction of Electrolytic and Water Balance Substance into Peripheral Vein, Percutaneous Approach (ICD-10-PCS; 2018-11-19)
DX: K29.00 Acute gastritis without bleeding (principal); F17.210 Nicotine dependence, cigarettes, uncomplicated
CPT/HCPCS: 36415; 80053; 83690; 84484; 85025; 93005; 99285-25; J0131; J7030

== ENCOUNTER 2019-11-11 06:40 | Emergency (ER) | payer OTHER ==
[2019-11-11 07:17] VITALS: BMI 25.0
[2019-11-11] MEDS ORDERED: IBUPROFEN 600 MG TABLET (FP) PO ONE ×2 (07:46→08:18)
[2019-11-11 09:15] LABS: BASO % 0.6 % (0-2.0); EOS % 1.3 % (0-4.5); HEMATOCRIT 42.3 % (35.4-49); HEMOGLOBIN 14.6 GM/dL (11.7-16.9); LYMPH % 19.6 % (8-40); MCH 30.5 pg (25.7-33.7); MCHC 34.5 g/dl (32.0-35.9); MEAN CELL VOLUME 88.4 fl (80-96); MEAN PLT VOLUME 8.1 fl (7.5-11.1); MONO % 5.9 % (3.8-10.2); NEUT % 72.6 % (42.8-82.8); PLATELET COUNT 186 K/MM3 (134-434); RBC 4.78 M/mm3 (4.00-5.60); RDW 13.8 % (11.9-15.9)
[2019-11-11] MEDS ORDERED: METHOCARBAMOL 750 MG TAB PO ONE (09:19)
[2019-11-11 09:45] LABS: ALBUMIN 3.5 g/dl (3.4-5.0); ALK PHOS 77 U/L (45-117); ANION GAP 4 MMOL/L (8-16); BILIRUBIN,TOTAL 0.4 mg/dL (0.2-1); BLOOD UREA NITROGEN 13.1 mg/dL (7-18); CALCIUM 9.2 mg/dL (8.5-10.1); CHLORIDE 110 mmol/L (98-107); CO2 26 mmol/L (21-32); CREATININE 1.2 mg/dL (0.55-1.3); GLUCOSE,RANDOM 111 mg/dL (74-106); POTASSIUM 4.4 mmol/L (3.5-5.1); SGOT/AST 15 U/L (15-37); SGPT/ALT 26 U/L (13-61); SODIUM 140 mmol/L (136-145); TOT PROT 7.1 g/dl (6.4-8.2)
[2019-11-11] MEDS ORDERED: METHOCARBAMOL 500 MG TABLET ONE (10:35)
[2019-11-11 11:21] LABS: EPI CELLS 1.2 /HPF (0-5/HPF); HYALINE CASTS 0 /lpf (0-8); URINE APPEARANCE CLEAR; URINE BACTERIA 1.2 /hpf (NEGATIVE); URINE BILIRUBIN NEGATIVE (NEGATIVE); URINE COLOR YELLOW; URINE GLUCOSE (UA) NEGATIVE (NEGATIVE); URINE KETONE TRACE (NEGATIVE); URINE LEUK ESTERASE NEGATIVE (NEGATIVE); URINE NITRITE NEGATIVE (NEGATIVE); URINE PROTEIN 1+ (NEGATIVE); URINE RBC 6 /hpf (0-4); URINE WBC 2 /hpf (0-5)
--- NOTE | 2019-11-11 11:31 | PDOC ---
History of Present Illness - General Chief Complaint: Pain, Acute Stated Complaint: ABD PAIN, BACK PAIN Time Seen by Provider: 11/11/19 07:31 - History of Present Illness Initial Comments: 11/11/19 11:27 49 yo no PMH presenting with low back and b/l flank pain. 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 Took Tylenol 650mg 1 hour before ED arrival without initial relief, however, states that he feels better now than when the pain began. Denies CP, SOB, N/V, constipation/diarrhea, fevers/chills, MCDONALD, urinary symptoms , recent travel, recent illness. Past History - Past Medical History Allergies/Adverse Reactions: Allergies Allergy/AdvReac Type Severity Reaction Status Date / Time No Known Allergies Allergy Verified 11/11/19 07:16 Home Medications: Ambulatory Orders NK [No Known Home Medication] 11/11/19 COPD: No - Surgical History Abdominal Surgery: Yes (HEMMORRHOIDECTOMY) - Psycho Social/Smoking Cessation Hx Smoking Status: No Smoking History: Current every day smoker Have you smoked in the past 12 months: No Number of Cigarettes Smoked Daily: 1 Information on smoking cessation initiated: No 'Breaking Loose' booklet given: 11/19/18 Hx Alcohol Use: No Drug/Substance Use Hx: No Substance Use Type: None Review of Systems - Review of Systems Comments:: 11/11/19 11:30 GENERAL/CONSTITUTIONAL: No fever or chills. No weakness. HEAD, EYES, EARS, NOSE AND THROAT: No change in vision. No ear pain or discharge. No sore throat. CARDIOVASCULAR: No chest pain or shortness of breath. RESPIRATORY: No cough, wheezing, or hemoptysis. GASTROINTESTINAL: No nausea, vomiting, diarrhea or constipation. GENITOURINARY: No dysuria, frequency, or change in urination. MUSCULOSKELETAL: No joint or muscle swelling or pain. No neck or back pain. SKIN: No rash NEUROLOGIC: No headache, vertigo, loss of consciousness, or change in strength/ sensation. ENDOCRINE: No increased thirst. No abnormal weight change. HEMATOLOGIC/LYMPHATIC: No anemia, easy bleeding, or history of blood clots. ALLERGIC/IMMUNOLOGIC: No hives or skin allergy *Physical Exam - Vital Signs Last Vital Signs Temp Pulse Resp BP Pulse Ox 97.8 F 89 16 117/78 98 11/11/19 07:14 11/11/19 07:14 11/11/19 07:14 11/11/19 07:14 11/11/19 07:14 - Physical Exam 11/11/19 15:25 Gen: well-developed, well-nourished, NAD Neuro: AAOX4, CN II-XII intact, FTN intact, EOMI, PERRLA, 5/5 strength, SILT HEENT: atraumatic, normocephalic, dry mucous membranes Neck: trachea midline, supple CV: regular rate, regular rhythm, no murmurs, rubs, or gallops Pulm: CTA b/l, no wheezing Abd: soft, non-distended, mild RUQ tenderness MSK: full ROM, intact pulses Extr: no edema, no deformities Skin: warm, dry ED Treatment Course - LABORATORY CBC & Chemistry Diagram: 11/11/19 08:55 11/11/19 08:55 - ADDITIONAL ORDERS Additional order review: Laboratory Results 11/11/19 11/11/19 11/11/19 10:48 08:55 08:55 Sodium 140 Potassium 4.4 Chloride 110 H Carbon Dioxide 26 Anion Gap 4 L BUN 13.1 Creatinine 1.2 Est GFR (CKD-EPI)AfAm 81.23 Est GFR (CKD-EPI)NonAf 70.09 Random Glucose 111 H Calcium 9.2 Total Bilirubin 0.4 AST 15 ALT 26 Alkaline Phosphatase 77 Troponin I < 0.02 Total Protein 7.1 Albumin 3.5 Lipase 165 Urine Color Yellow Urine Appearance Clear Urine pH 5.0 Ur Specific [place] 1.030 Urine Protein 1+ H Urine Glucose (UA) Negative Urine Ketones Trace H Urine Blood 1+ H Urine Nitrite Negative Urine Bilirubin Negative Urine Urobilinogen 1.0 Ur Leukocyte Esterase Negative Urine WBC (Auto) 2 Urine RBC (Auto) 6 Urine Casts (Auto) 0 U Epithel Cells (Auto) 1.2 Urine Bacteria (Auto) 1.2 11/11/19 08:55 RBC 4.78 MCV 88.4 MCHC 34.5 RDW 13.8 MPV 8.1 Neutrophils % 72.6 Lymphocytes % 19.6 Monocytes % 5.9 Eosinophils % 1.3 Basophils % 0.6 - RADIOLOGY Radiology Studies Ordered: Category Date Time Status ABDOMEN & PELVIS CT W/O CONTR [CT] Stat CT Scan 11/11/19 11:27 Ordered - Medications Given in the ED: ED Medications Discontinued Medications Generic Name Dose Route Start Last Admin Trade Name Octavia PRN Reason Stop Dose Admin Ibuprofen 600 mg 11/11/19 07:46 11/11/19 08:20 Motrin - PO 11/11/19 07:47 600 mg ONCE ONE Administration Methocarbamol 750 mg 11/11/19 09:19 11/11/19 10:38 Robaxin - PO 11/11/19 09:20 750 mg ONCE ONE Administration Medical Decision Making - Medical Decision Making 11/11/19 12:57 Concern for possible kidney stones vs MSK pain vs cholecystitis vs ACS. - CBC, CMP - EKG, trop, CXR - CT scan abd/pelvis w/o contrast - UA - RUQ US - ibuprofen 600mg 11/11/19 15:22 CT shows contracted gallbladder with gallstones, linear basilar atelectasis bilaterally, hiatal hernia. US with cholelithiasis. Patient reassessed, states that he is completely asymptomatic. Discharge - Discharge Information Problems reviewed: Yes Clinical Impression/Diagnosis: Abdominal pain Condition: Improved Disposition: HOME - Follow up/Referral Referrals: Florentin Leiva MD [Staff Physician] - - Patient Discharge Instructions Patient Printed Discharge Instructions: DI for Abdominal Pain-Adult Additional Instructions: You were seen with abdominal pain. Your labs were unconcerning. Your imaging did show gallstones, which may have been the source of your pain. Please follow up with surgery outpatient; a number is included in this paperwork. Follow up with your primary care doctor within one week. Return to the ED if you develop worsening symptoms. - Post Discharge Activity
--- NOTE | 2019-11-11 11:43 | PDOC ---
Documentation entered by Noe Benavidez SCRIBE, acting as scribe for John Vela MD. John Vela MD: This documentation has been prepared by the Pramod huff Xhesika, SCRIBE, under my direction and personally reviewed by me in its entirety. I confirm that the documentation accurately reflects all work, treatment, procedures, and medical decision making performed by me. Attending Attestation - Resident Resident Name: Kirstin Albert - ED Attending Attestation I have performed the following: I have examined & evaluated the patient, The case was reviewed & discussed with the resident, I agree w/resident's findings & plan - HPI HPI: 11/11/19 09:24 The patient is a 49 year old male with no significant PMH of who presents to the emergency department for b/l flank pain since 2am. 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 Pt notes he feels constipated but had a normal BM yesterday. Pt states he took Tylenol for pain, with no improvement of symptoms. Back pain now resolved with residual epigastric pain The patient denies chest pain, shortness of breath, headache and dizziness. Denies fever, chills, cough, nausea, vomiting, diarrhea. Denies dysuria, frequency, urgency and hematuria. Allergies: NKDA Social history: Smokes hookah every night. - Physicial Exam PE: 11/11/19 11:38 Vital signs stable Alert, seated in stretcher, no acute distress Speaking full sentences, no jaundice or pallor, moist mucosa Heart is regular, lungs are clear Abdomen is soft/nondistended. Tender with some guarding in the epigastric/ right upper quadrant/right mid abdomen region, no rebound. No CVA tenderness, no pulsatile masses, no palpable hernia No rash No midline spine tenderness - Medical Decision Making 11/11/19 11:40 49-year-old male with no significant past medical history presents with back pain that radiated to abdomen, now with residual epigastric discomfort. Presentation seems atypical for ACS, abdominal exam does localize to the right mid/upper abdomen, raising some concern for GI etiology such as biliary colic, etiology such as renal stone is also on the differential. Less likely vascular, hemodynamically stable. Labs, urinalysis EKG CXR normal Right upper quadrant ultrasound CT of the abdomen and pelvis following urinalysis with elevated red blood cells Pain control Reassess Heart Score/ECG Review #1 ECG reviewed & interpreted by me at: 13:39 General ECG Interpretation: Sinus Rhythm, Normal Rate (64), Normal Intervals ( qtc 404), No acute ischemic changes
[2019-11-11 11:49] LABS: URINE CRYSTALS CALCIUM OXALATE /hpf
[2019-11-11 15:59] VITALS: BP 120/60; PULSE 81; TEMP 98.5
--- NOTE | 2019-11-12 10:21 | EKG ---
Test Reason : Blood Pressure : / mmHG Vent. Rate : 064 BPM Atrial Rate : 064 BPM P-R Int : 118 ms QRS Dur : 078 ms QT Int : 392 ms P-R-T Axes : 049 -27 -07 degrees QTc Int : 404 ms NORMAL SINUS RHYTHM NORMAL ECG Confirmed by MD Gabriel Edward ([id number]) on 11/12/2019 10:21:13 AM Referred By: Confirmed By:Linwood Gabriel MD
== END 2019-11-11 16:00 | disposition home or self-care (01) ==
LOC: JER 06:40
DX: R10.9 Unspecified abdominal pain (principal); K80.20 Calculus of gallbladder without cholecystitis without obstruction
CPT/HCPCS: 36415; 71046-TC-FY; 74176-TC; 76705-TC; 80053; 81003; 83690; 84484; 85025; 93005; 93010; 99284-25

== ENCOUNTER 2019-11-12 06:42 | Inpatient (IN) | payer OTHER ==
--- NOTE | 2019-11-12 07:16 | PDOC ---
Attending Attestation - Resident Resident Name: Kirstin Albert - ED Attending Attestation I have performed the following: I have examined & evaluated the patient, The case was reviewed & discussed with the resident, I agree w/resident's findings & plan, Exceptions are as noted - HPI HPI: 11/12/19 07:57 49yo male dx yesterday with gallstones with worsening RUQ pain. No assoc n/v/d. No dysuria. No cp/sob. Pt states pain in mid epigastric and RUQ region. No other complaints. - Physicial Exam PE: 11/12/19 07:58 Gen: aaox3, uncomfortable heart: +s1s2 reg lungs: cta b/l abd: soft, epigastric and RUQ ttp +murphys ext: no c/c/e - Medical Decision Making 11/12/19 07:59 a/p: 49yo male with recent dx of gallstones with worsening pain -concern for biliary colic -no assoc n/v/d this am -pt appears uncomfortable -repeat bedside ultrasound shows gallstones without acute sruthi -will send labs -resident discussed the case with surgery who recommends labs, HIDA and he will see patient in consult -will start ivf hydration, pain control, npo 11/12/19 08:59 dr diaz at the bedside recommends HIDA 11/12/19 09:00 mildly elevatd wbc- no shift normal lft PMD Dr. Patten - call placed to Dr. Mcmahon for admission 11/12/19 09:26 resident discussed the case with Dr. Pena who accepts pt to service Heart Score/ECG Review - ECG Intrepretation Comment:: 11/12/19 08:00 sinus at 54, l campoverde axis, t wave inversions iii, avf, no acute st changes 11/12/19 08:01 ekg unchanged from prio
[2019-11-12] MEDS ORDERED: ACETAMINOPHEN 1000 MG/100 ML VIAL (NON FORMULARY) IVPB ONE ×2 (07:17→07:26)
[2019-11-12] MEDS ORDERED: KETOROLAC TROMETHAMINE 30 MG/1 ML VIAL IVPUSH ONE (07:23)
[2019-11-12] MEDS ORDERED: SODIUM CHLORIDE 0.9% 1000 ML INFUS.BAG IV ONE (07:26)
[2019-11-12] MEDS ORDERED: FAMOTIDINE 20 MG/50 ML IVPB 20 MG/50 ML MG IVPB ONE ×2 (07:26→07:56)
[2019-11-12 07:34] VITALS: BMI 26.6
--- NOTE | 2019-11-12 07:35 | PDOC ---
History of Present Illness - General Chief Complaint: Pain Stated Complaint: ABD PAIN Time Seen by Provider: 11/12/19 07:12 - History of Present Illness Initial Comments: 11/12/19 08:50 49 yo no PMH presenting with RUQ abdominal pain. Noticeably, patient was seen here yesterday, found to have gallstones. Patient states that this pain is the same but more intense, 10/10 squeezing pain. States that it began around 0600 and he did not try any medication at home. Denies CP, SOB, N/V, constipation/diarrhea, fevers/chills, MCDONALD, urinary symptoms , recent travel, recent illness. Past History - Past Medical History Allergies/Adverse Reactions: Allergies Allergy/AdvReac Type Severity Reaction Status Date / Time No Known Allergies Allergy Verified 11/11/19 07:16 Home Medications: Ambulatory Orders Ibuprofen [Motrin -] 600 mg PO Q6H #45 tablet 11/12/19 COPD: No - Surgical History Abdominal Surgery: Yes (HEMMORRHOIDECTOMY) - Psycho Social/Smoking Cessation Hx Smoking Status: No Smoking History: Current every day smoker Have you smoked in the past 12 months: No Number of Cigarettes Smoked Daily: 1 'Breaking Loose' booklet given: 11/19/18 Hx Alcohol Use: No Drug/Substance Use Hx: No Substance Use Type: None Review of Systems - Review of Systems Comments:: 11/12/19 09:23 GENERAL/CONSTITUTIONAL: No fever or chills. No weakness. HEAD, EYES, EARS, NOSE AND THROAT: No change in vision. No ear pain or discharge. No sore throat. CARDIOVASCULAR: No chest pain or shortness of breath. RESPIRATORY: No cough, wheezing, or hemoptysis. GASTROINTESTINAL: No nausea, vomiting, diarrhea or constipation. GENITOURINARY: No dysuria, frequency, or change in urination. MUSCULOSKELETAL: No joint or muscle swelling or pain. No neck or back pain. SKIN: No rash NEUROLOGIC: No headache, vertigo, loss of consciousness, or change in strength/ sensation. ENDOCRINE: No increased thirst. No abnormal weight change. HEMATOLOGIC/LYMPHATIC: No anemia, easy bleeding, or history of blood clots. ALLERGIC/IMMUNOLOGIC: No hives or skin allergy *Physical Exam - Physical Exam 11/12/19 09:44 Gen: well-developed, well-nourished, in distress Neuro: AAOX4, CN II-XII intact, FTN intact, EOMI, PERRLA, 5/5 strength, SILT HEENT: atraumatic, normocephalic, dry mucous membranes Neck: trachea midline, supple CV: regular rate, regular rhythm, no murmurs, rubs, or gallops Pulm: CTA b/l, no wheezing Abd: soft, non-distended, RUQ tenderness, positive Rojas's sign MSK: full ROM, intact pulses Extr: no edema, no deformities Skin: warm, dry ED Treatment Course - LABORATORY CBC & Chemistry Diagram: 11/12/19 07:50 11/12/19 07:50 Medical Decision Making - Medical Decision Making 11/12/19 07:00 Concern for biliary colic. Will contact general surgery, get pre-surgical labs. - CBC, CMP - EKG, CXR - coags - T+S - Pepcid - ceftriaxone 1000mg - Ofirmev 11/12/19 07:[address] Leiva, recommends admit for HIDA scan and he will consult on the patient. Discharge - Discharge Information Problems reviewed: Yes Clinical Impression/Diagnosis: Cholecystitis with cholelithiasis Condition: Stable Disposition: HOME - Follow up/Referral - Patient Discharge Instructions - Post Discharge Activity
[2019-11-12] MEDS ORDERED: ACETAMINOPHEN INJECTION 100 ML IVPB ONE (07:56)
[2019-11-12 08:17] LABS: BASO % 0.5 % (0-2.0); EOS % 1.2 % (0-4.5); HEMATOCRIT 42.6 % (35.4-49); HEMOGLOBIN 14.8 GM/dL (11.7-16.9); MCH 30.4 pg (25.7-33.7); MCHC 34.8 g/dl (32.0-35.9); MEAN CELL VOLUME 87.3 fl (80-96); MONO % 6.6 % (3.8-10.2); NEUT % 72.7 % (42.8-82.8); PLATELET COUNT 197 K/MM3 (134-434); RBC 4.88 M/mm3 (4.00-5.60); WHITE BLOOD COUNT 10.4 K/mm3 (4.0-10.0)
[2019-11-12 08:21] LABS: INR 0.97 (0.83-1.09); PROTHROMBIN TIME (PATIENT) 11.4 SEC (9.7-13.0)
[2019-11-12 08:24] LABS: ACTIVATED PTT 35.7 SECONDS (25.2-36.5)
[2019-11-12 08:45] LABS: ALBUMIN 3.7 g/dl (3.4-5.0); BILIRUBIN,TOTAL 0.3 mg/dL (0.2-1); BLOOD UREA NITROGEN 15.2 mg/dL (7-18); CALCIUM 8.5 mg/dL (8.5-10.1); CREATININE 1.3 mg/dL (0.55-1.3); POTASSIUM 4.1 mmol/L (3.5-5.1); TOT PROT 7.4 g/dl (6.4-8.2)
[2019-11-12] MEDS ORDERED: CEFTRIAXONE 1,000 MG in DEXTROSE 5%-WATER - 50 ML IVPB ONE (08:54)
[2019-11-12] MEDS ORDERED: CEFTRIAXONE 1 GM/50 ML BAG ONE (09:02)
--- NOTE | 2019-11-12 10:30 | EKG ---
Test Reason : Blood Pressure : / mmHG Vent. Rate : 054 BPM Atrial Rate : 054 BPM P-R Int : 118 ms QRS Dur : 086 ms QT Int : 378 ms P-R-T Axes : 043 -36 -24 degrees QTc Int : 358 ms SINUS BRADYCARDIA WITH MARKED SINUS ARRHYTHMIA LEFT AXIS DEVIATION NONSPECIFIC T WAVE ABNORMALITY ABNORMAL ECG WHEN COMPARED WITH ECG OF 11-NOV-2019 13:39, NO SIGNIFICANT CHANGE WAS FOUND Confirmed by MD Harvey, Linwood ([id number]) on 11/12/2019 10:29:41 AM Referred By: Confirmed By:Linwood Gabriel MD
--- NOTE | 2019-11-12 10:42 | HP ---
Admitting History and Physical - Primary Care Physician PCP: Ed Patten - Admission Chief Complaint: Abdominal Pain History of Present Illness: Patient is a 49 y/o male with no significant past medical history. Patient complains of abdominal pain radiating to back. He was seen in ER on 11/11/19 for same chief complaint. Abd/Pelvic CT scan from 11/11/19 shows contracted gallbladder with gallstones, no evidence of acute cholecystitis. Patient was given referral to follow up with surgery and discharged home. Patient states he went home and ate dinner. He then woke up at 0600 to worsening abdominal pain radiating to back. Denies nausea, vomiting, or diarrhea. No loss of appetite. THere are no alleviating or exacerbating factors for his pain. History Source: Patient Limitations to Obtaining History: No Limitations - Past Surgical History Past Surgical History: Yes: None - Smoking History Smoking history: Current every day smoker Have you smoked in the past 12 months: No Aproximately how many cigarettes per day: 1 - Alcohol/Substance Use Hx Alcohol Use: No - Social History ADL: Independent History of Recent Travel: No Home Medications - Allergies Allergies/Adverse Reactions: Allergies Allergy/AdvReac Type Severity Reaction Status Date / Time No Known Allergies Allergy Verified 11/11/19 07:16 - Home Medications Home Medications: Ambulatory Orders NK [No Known Home Medication] 11/11/19 Review of Systems - Review of Systems Constitutional: reports: No Symptoms Eyes: reports: No Symptoms HENT: reports: No Symptoms Neck: reports: No Symptoms Cardiovascular: reports: No Symptoms Respiratory: reports: No Symptoms Gastrointestinal: reports: Abdominal Pain Genitourinary: reports: No Symptoms Breasts: reports: No Symptoms Reported Musculoskeletal: reports: Back Pain Integumentary: reports: No Symptoms Neurological: reports: No Symptoms Endocrine: reports: No Symptoms Hematology/Lymphatic: reports: No Symptoms Psychiatric: reports: No Symptoms Physical Examination Vital Signs: Vital Signs Temperature 97.7 F 11/12/19 09:55 Pulse Rate 73 11/12/19 09:55 Respiratory Rate 16 11/12/19 09:55 Blood Pressure 111/82 11/12/19 09:55 O2 Sat by Pulse Oximetry (%) 98 11/12/19 09:55 Constitutional: Yes: No Distress, Calm Eyes: Yes: Conjunctiva Clear HENT: Yes: Atraumatic Neck: Yes: Supple Cardiovascular: Yes: Regular Rate and Rhythm Respiratory: Yes: Regular, CTA Bilaterally Gastrointestinal: Yes: Normal Bowel Sounds, Soft Musculoskeletal: Yes: Back Pain Extremities: Yes: WNL Edema: No Neurological: Yes: Alert, Oriented Psychiatric: Yes: Alert, Oriented Labs: CBC, BMP 11/12/19 07:50 11/12/19 07:50 Imaging - Results Cat Scan: Report Reviewed Problem List - Problems (1) Abdominal pain Assessment/Plan: -Abd/Pelvic CT scan from 11/11/19 shows contracted gallbladder with gallstones , no evidence of acute cholecystitis -Surgery consult -IV hydration -leukocytosis -afebrile -pain control -pantoprazole -clear liquids Code(s): R10.9 - UNSPECIFIED ABDOMINAL PAIN Assessment/Plan problem list SCDs
[2019-11-12] MEDS ORDERED: PANTOPRAZOLE SODIUM 40 MG VIAL IVPUSH SCH (11:00)
[2019-11-12] MEDS ORDERED: SODIUM CHLORIDE 0.9% 500 ML INFUS.BAG IV SCH (11:00)
[2019-11-12] MEDS ORDERED: KETOROLAC TROMETHAMINE 30 MG/1 ML VIAL IVPUSH PRN (11:04)
--- NOTE | 2019-11-12 11:37 | CONSULT ---
Consult Consult Specialty:: Surgery Reason for Consultation:: CHOLELITHIASIS - History of Present Illness Chief Complaint: abdominal pain History of Present Illness: 49 yo no PMH presenting with RUQ abdominal pain. Noticeably, patient was seen here yesterday, found to have gallstones. Patient states that this pain is the same but more intense, 10/10 squeezing pain. States that it began around 0600 and he did not try any medication at home. Denies CP, SOB, N/V, constipation/diarrhea, fevers/chills, MCDONALD, urinary symptoms , recent travel, recent illness. Patient is no longer in pain - History Source History Provided By: Patient - Past Surgical History Past Surgical History: Yes: None - Alcohol/Substance Use Hx Alcohol Use: No - Smoking History Smoking history: Current every day smoker Have you smoked in the past 12 months: No Aproximately how many cigarettes per day: 1 - Social History ADL: Independent History of Recent Travel: No Home Medications - Allergies Allergies/Adverse Reactions: Allergies Allergy/AdvReac Type Severity Reaction Status Date / Time No Known Allergies Allergy Verified 11/11/19 07:16 - Home Medications Home Medications: Ambulatory Orders NK [No Known Home Medication] 11/11/19 Physical Exam Vital Signs: Vital Signs Temperature 97.7 F 11/12/19 09:55 Pulse Rate 73 11/12/19 09:55 Respiratory Rate 16 11/12/19 09:55 Blood Pressure 111/82 11/12/19 09:55 O2 Sat by Pulse Oximetry (%) 98 11/12/19 09:55 Constitutional: Yes: Well Nourished, Calm Eyes: Yes: Conjunctiva Clear HENT: Yes: Normocephalic Neck: Yes: Supple Cardiovascular: Yes: Regular Rate and Rhythm Respiratory: Yes: CTA Bilaterally Gastrointestinal: Yes: Soft, Tenderness (mild at RUQ) ...Rectal Exam: Yes: Deferred Labs: CBC, BMP 11/12/19 07:50 11/12/19 07:50 Imaging - Results Cat Scan: Report Reviewed, Image Reviewed Ultrasound: Report Reviewed, Image Reviewed Other: Report Reviewed, Image Reviewed, Other (HIDA scan - chronic cholecystitis ) Problem List - Problems (1) Cholecystitis with cholelithiasis Assessment/Plan: Patient given option of cholecystectomy on this hospital stay () or d/c home to and to be scheduled electively Code(s): K80.10 - CALCULUS OF GALLBLADDER W CHRONIC CHOLECYST W/O OBSTRUCTION
[2019-11-12 17:28] VITALS: BP 96/55; PULSE 70; TEMP 97.6
--- NOTE | 2019-11-12 18:07 | DS ---
Physical Examination Vital Signs: Vital Signs Temperature 97.6 F 11/12/19 16:30 Pulse Rate 70 11/12/19 16:30 Respiratory Rate 20 11/12/19 16:30 Blood Pressure 96/55 L 11/12/19 16:30 O2 Sat by Pulse Oximetry (%) 98 11/12/19 10:00 Findings/Remarks: Laboratory Last Values WBC 10.4 K/mm3 (4.0-10.0) H 11/12/19 07:50 RBC 4.88 M/mm3 (4.00-5.60) 11/12/19 07:50 Hgb 14.8 GM/dL (11.7-16.9) 11/12/19 07:50 Hct 42.6 % (35.4-49) 11/12/19 07:50 MCV 87.3 fl (80-96) 11/12/19 07:50 MCH 30.4 pg (25.7-33.7) 11/12/19 07:50 MCHC 34.8 g/dl (32.0-35.9) 11/12/19 07:50 RDW 14.0 % (11.9-15.9) 11/12/19 07:50 Plt Count 197 K/MM3 (134-434) 11/12/19 07:50 MPV 8.0 fl (7.5-11.1) 11/12/19 07:50 Absolute Neuts (auto) 7.6 K/mm3 (1.5-8.0) 11/12/19 07:50 Neutrophils % 72.7 % (42.8-82.8) 11/12/19 07:50 Lymphocytes % 19.0 % (8-40) 11/12/19 07:50 Monocytes % 6.6 % (3.8-10.2) 11/12/19 07:50 Eosinophils % 1.2 % (0-4.5) 11/12/19 07:50 Basophils % 0.5 % (0-2.0) 11/12/19 07:50 Nucleated RBC % 0 % (0-0) 11/12/19 07:50 PT with INR 11.40 SEC (9.7-13.0) 11/12/19 07:50 INR 0.97 (0.83-1.09) 11/12/19 07:50 PTT (Actin FS) 35.7 SECONDS (25.2-36.5) 11/12/19 07:50 Sodium 141 mmol/L (136-145) 11/12/19 07:50 Potassium 4.1 mmol/L (3.5-5.1) 11/12/19 07:50 Chloride 106 mmol/L (98-107) 11/12/19 07:50 Carbon Dioxide 29 mmol/L (21-32) 11/12/19 07:50 Anion Gap 6 MMOL/L (8-16) L 11/12/19 07:50 BUN 15.2 mg/dL (7-18) 11/12/19 07:50 Creatinine 1.3 mg/dL (0.55-1.3) 11/12/19 07:50 Est GFR (CKD-EPI)AfAm 73.74 11/12/19 07:50 Est GFR (CKD-EPI)NonAf 63.62 11/12/19 07:50 Random Glucose 117 mg/dL (74-106) H 11/12/19 07:50 Calcium 8.5 mg/dL (8.5-10.1) 11/12/19 07:50 Total Bilirubin 0.3 mg/dL (0.2-1) 11/12/19 07:50 AST 15 U/L (15-37) 11/12/19 07:50 ALT 25 U/L (13-61) 11/12/19 07:50 Alkaline Phosphatase 83 U/L (45-117) 11/12/19 07:50 Total Protein 7.4 g/dl (6.4-8.2) 11/12/19 07:50 Albumin 3.7 g/dl (3.4-5.0) 11/12/19 07:50 Lipase 194 U/L (73-393) 11/12/19 07:50 Blood Type O POSITIVE 11/12/19 07:50 Antibody Screen Negative 11/12/19 07:50 Labs: CBC, BMP 11/12/19 07:50 11/12/19 07:50 Discharge Summary Reason For Visit: BILIARY COLIC Current Active Problems Cholecystitis with cholelithiasis (Acute) Procedures: Principal: HIDA scan Hospital Course: Patient is a 49 y/o male with no significant past medical history. patient was admitted for cholecystitis. Patient was evaluated by Surgery and HIDA scan ordered. HIDA scan show chronic cholecystitis. Cleared by surgery for discharge and will follow up as outpatient for cholecystectomy. Condition: Stable - Instructions Diet, Activity, Other Instructions: Follow up with pmd in 1 week of discharge Follow up with Dr Leiva in 1 week avoid fatty foods take motrin as needed for pain return to ER if develops severe pain, respiratory distress, chest pain Referrals: Ed Patten MD [Primary Care Provider] - Florentin Leiva MD [Staff Physician] - Disposition: HOME - Home Medications Comprehensive Discharge Medication List: Ambulatory Orders Ibuprofen [Motrin -] 600 mg PO Q6H #45 tablet 11/12/19
== END 2019-11-12 18:25 | disposition home or self-care (01) ==
LOC: JER 06:42 → JERBED 08:49 → J8W 10:35
PROVIDERS: ADMIT Family Medicine; ATTEND Family Medicine
DX: K80.10 Calculus of gallbladder with chronic cholecystitis without obstruction (principal); R10.11 Right upper quadrant pain; F17.210 Nicotine dependence, cigarettes, uncomplicated
CPT/HCPCS: 36415; 76705-TC; 78226-TC; 80053; 83690; 85025; 85610; 85730; 86850; 86900; 86901; 93005; 93010; 99285-25; A9537; J0131; J7030

== ENCOUNTER 2019-11-15 07:24 | Day surgery (SDC) | payer OTHER ==
[2019-11-14 12:14] VITALS: BMI 25.8
[2019-11-15] MEDS ORDERED: NEOSTIGMINE METHYLSULFATE 0.5 MG/ML - 10 ML MDV ONE (10:09)
[2019-11-15] MEDS ORDERED: PROPOFOL 20 ML ONE ×2 (10:10→10:31)
[2019-11-15] MEDS ORDERED: MIDAZOLAM HCL 2 MG/2 ML SINGLE DOSE VIAL ONE (10:10)
[2019-11-15] MEDS ORDERED: fentaNYL CITRATE 250 MCG/5 ML VIAL ONE (10:10)
--- NOTE | 2019-11-15 10:20 | HP ---
History & Physical Update - History History: No Change - Physical Physical: No Change - Assessment Assessment: No Change - Plan Plan: No Change (Inpatient H & P done on 11/12/19)
[2019-11-15] MEDS ORDERED: BUPIVACAINE HCL/PF 0.5% (5 MG/ML) 30 ML VIAL IJ ONE (10:48)
[2019-11-15] MEDS ORDERED: KETOROLAC TROMETHAMINE 30 MG/1 ML VIAL ONE (11:50)
[2019-11-15] MEDS ORDERED: LIDOCAINE HCL/PF 2% SDV 5ML VIAL ONE (11:50)
[2019-11-15] MEDS ORDERED: DEXAMETHASONE SOD PHOSPHATE 4 MG/1 ML VIAL ONE (11:50)
[2019-11-15] MEDS ORDERED: GLYCOPYRROLATE 0.2 MG/1 ML VIAL ONE (11:50)
[2019-11-15] MEDS ORDERED: LIDOCAINE HCL 2% JELLY (5 ML/TUBE) ONE (11:50)
[2019-11-15] MEDS ORDERED: oxyCODONE HCL 5 MG TABLET PO PRN (12:04)
[2019-11-15] MEDS ORDERED: ONDANSETRON 4 MG/2 ML VIAL IVPUSH PRN (12:04)
--- NOTE | 2019-11-15 12:10 | OP ---
Operative Note - Note: Operative Date: 11/15/19 Pre-Operative Diagnosis: chronic cholecystitis Operation: laparoscopic cholecystectomy Findings: gallbladder with 8 mm stone and wide cystic duct Post-Operative Diagnosis: Same as Pre-op Surgeon: Florentin Leiva Heavy Equipment Sales Manager: Edgar Amaya Anesthesia: General Specimens Removed: gallbladder Estimated Blood Loss (mls): 20 Operative Report Dictated: Yes
--- NOTE | 2019-11-15 12:16 | SURG ---
Surgery Trouble Shooter Note Trouble Shooter: Edgar Amaya PA-C Date of Service: 11/15/19 Diagnosis: chronic cholecystitis Procedure: laparoscopic cholecystectomy I was present for the entirety of the operative procedure. For further detail, please refer to operative report. Visit type - Case Type Case Type: Scheduled - Emergency Emergency Visit: No - New patient This patient is new to me today: Yes Date on this admission: 11/15/19 - Critical Care Critical Care patient: No
--- NOTE | 2019-11-15 12:54 | OP ---
DATE OF OPERATION: 11/15/2019 PROCEDURE: Laparoscopic cholecystectomy. PREOPERATIVE DIAGNOSIS: Chronic cholecystitis with cholelithiasis. POSTOPERATIVE DIAGNOSIS: Chronic cholecystitis with cholelithiasis. SURGEON: Florentin Leiva MD LIQUID FLAVOR COMPOUNDER SURGEON: HILARY Monge ANESTHESIA: General endotracheal. FINDINGS AND PROCEDURE: This is a 49-year-old male who presents with 3-day history of right upper quadrant pain radiating to the back for which the patient went to the emergency department and was found to have gallbladder with stones and a normal- sized common duct, mildly elevated white blood cell count. Patient was sent home with pain medicine; however, the pain persisted, so patient came back to the emergency department and at this time admitted for persistent pain. HIDA scan in the hospital revealed delayed visualization of the gallbladder consistent with chronic cholecystitis, so patient was then sent home and was scheduled for outpatient cholecystectomy. Consent was obtained after discussing the risks, benefits, and alternatives of the procedure. DESCRIPTION OF PROCEDURE: Patient was brought to the operating room and placed in supine position. General endotracheal anesthesia was administered. The abdomen was prepped and draped in the usual sterile fashion. Using 0.5% Marcaine, local anesthesia was administered to the proposed incision sites. Peritoneal cavity was entered using the Optiview technique via 5-mm umbilical incision using a 5-mm 30-degree scope inserted in a 5-mm optical port. Pneumoperitoneum was established. The peritoneal cavity was carefully inspected and was noted to be free of inadvertent injury. Patient was then placed in reverse Trendelenburg left side down position. Patient's falciform ligament was noted to be incomplete with no falciform ligament at the area of the liver, and the left lobe of the liver was noted to be flopping towards the right side. Two 5-mm ports were inserted at the right subcostal region at the midclavicular and anterior axillary lines. The gallbladder was grasped and retracted superiorly to visualize the proximal gallbladder. The gallbladder was noted to be high lying, and the infundibulum was grasped and retracted inferolaterally to expose the hepatocystic triangle. Due to the abnormal anatomy, the visceral peritoneum covering the gallbladder was scored very high up distal to the presumed infundibulum and using the hook dissector connected to monopolar cautery. Dissection was carried towards the proximal gallbladder. A partial dome-down approach was done by the proximal gallbladder wall from the gallbladder bed using the hook dissector connected to the monopolar cautery. A distal branch of the cystic artery was inadvertently punctured resulting to active bleeding, which was ventrally controlled by applying hemoclips and Surgicel. After this, further dissection of the infundibulum was done towards the hepatocystic triangle, and an inadvertent puncture of the distal infundibulum was noted. On further dissection, the cystic duct was noted and was noted to be abnormally wide to about 8 mm in diameter. The search for the critical view of safety was then established by creating a wide window behind the cystic artery between the proximal gallbladder wall and liver bed. After this was created, the wide cystic duct was traced towards the gallbladder-cystic duct junction and proximally towards its insertion towards its junction with the common bile duct. The common bile duct was also identified running above the pylorus of the stoma, and also there was no other tubular structure distal to the critical view of safety. After it was determined that the cystic duct was initially wide, the cystic duct was transected using the Endo SUJEY 30/2.5-mm stapling device. Cystic artery was also clipped at 1 point and then transected distally using the LigaSure, the vessel-sealing device. After this, the proximal gallbladder was carefully inspected and was noted to be free of any other tubular structure. The gallbladder was then resected from its bed using combined hook dissector dissection and LigaSure dissection. The gallbladder was placed in Endobag and extracted via the 12-mm subxiphoid incision. The gallbladder bed was again inspected, and further hemostasis was done using the hook dissector connected to the monopolar cautery. The stump of the cystic duct as well as the cystic artery was also inspected and was noted to be intact. The Morison's pouch in the right hepatic gutter was copiously irrigated with sterile normal saline until return was clear. The pneumoperitoneum was evacuated, and the ports were removed. The wounds were closed with 1 figure of eight Vicryl 0 suture for the fascia of the subxiphoid port and subcuticular Biosyn 4-0 suture for the skin. The wound closure was reinforced with Dermabond. The patient was successfully extubated and transferred to the post anesthesia care unit in satisfactory condition. Estimated blood loss was about 20 mL. Wound class clean contaminated. The patient received a gram of Ancef prior to the start of the procedure. Vivi [id number] MTDChar
[2019-11-15 15:40] VITALS: TEMP 97.9
[2019-11-15] MEDS ORDERED: oxyCODONE HCL 5 MG TABLET ONE (16:09)
[2019-11-15 16:49] VITALS: BP 118/82; PULSE 90
--- NOTE | 2019-11-18 11:57 | PATH ---
Surgical Pathology Report Patient Name: DENNY GARCIAS Med. Rec. #: [id number] /Age/Gender: 1970 (Age: 49) / M Account: [id number] Location: [facility] SURGICAL Taken: 11/15/2019 Received: 11/15/2019 Reported: 11/18/2019 Physicians: Florentin Leiva M.D. Specimen(s) Received GALLBLADDER Clinical History Chronic cholecystitis Final Diagnosis GALLBLADDER, LAPAROSCOPIC CHOLECYSTECTOMY: CHRONIC CHOLECYSTITIS WITH CHOLELITHIASIS. Electronically Signed Maggy Zeng M.D. Gross Description Received in formalin, labeled "gallbladder," is a 5.7 x 2.3 x 1.5 cm. gallbladder with a 0.2 cm. in length portion of cystic duct attached. The outer surface is vargas-pink and varies from smooth to shaggy. The lumen contains vargas red bile and blood as well as a 0.7 cm in greatest dimension vargas, bosselated cholelith. The mucosa is hyperemic. The wall of the gallbladder averages 0.2 cm. in thickness. Seconds Inspector sections are submitted in one cassette. /11/15/2019 saudi11/15/2019
== END 2019-11-15 16:40 | disposition home or self-care (01) ==
LOC: JASU-SURG 07:24
PROVIDERS: ATTEND Surgery
PROC: 0FT44ZZ Resection of Gallbladder, Percutaneous Endoscopic Approach (ICD-10-PCS; principal; 2019-11-15 10:00)
DX: K80.10 Calculus of gallbladder with chronic cholecystitis without obstruction (principal)
CPT/HCPCS: 86850; 86900; 86901; 88304-TC; 94760

== ENCOUNTER 2023-05-21 14:44 | Emergency (ER) | payer OTHER ==
[2023-05-21 14:54] VITALS: BP 102/72; PULSE 70; RESP 18; TEMP 98.3; BMI 27.4
[2023-05-21 16:00] LABS: BASO % 0.7 % (0-2.0); EOS % 0.5 % (0-4.5); HEMATOCRIT 46.4 % (35.4-49); HEMOGLOBIN 15.4 GM/dL (11.7-16.9); LYMPH % 14.6 % (8-40); MCH 28.8 pg (25.7-33.7); MCHC 33.3 g/dl (32.0-35.9); MEAN CELL VOLUME 86.4 fl (80-96); MONO % 5.7 % (3.8-10.2); NEUT % 78.5 % (42.8-82.8); PLATELET COUNT 217 10^3/uL (134-434); RBC 5.37 M/mm3 (4.00-5.60); RDW 13.7 % (11.9-15.9); WHITE BLOOD COUNT 10.6 K/mm3 (4.0-10.0)
[2023-05-21 16:13] LABS: POTASSIUM 4.9 mmol/L (3.5-5.1)
[2023-05-21 16:15] LABS: ALBUMIN 3.8 g/dl (3.4-5.0); CALCIUM 9.1 mg/dL (8.5-10.1)
[2023-05-21 16:16] LABS: BLOOD UREA NITROGEN 15.7 mg/dL (7-18)
[2023-05-21 16:18] LABS: CREATININE 1.2 mg/dL (0.55-1.3)
[2023-05-21 16:20] LABS: BILIRUBIN,TOTAL 0.6 mg/dL (0.2-1); TOT PROT 7.8 g/dl (6.4-8.2)
[2023-05-21 16:24] LABS: INR 1.03 (0.83-1.09); PROTHROMBIN TIME (PATIENT) 11.9 SEC (9.7-13.0)
== END 2023-05-21 18:34 | disposition home or self-care (01) ==
LOC: JER 14:44
DX: R04.2 Hemoptysis (principal)
CPT/HCPCS: 36415; 71275-TC; 80053; 85025; 85610; 99285-25; Q9967

== ENCOUNTER 2023-06-20 05:16 | Day surgery (SDC) | payer OTHER ==
[2023-06-14 16:24] VITALS: BMI 28.3
[2023-06-20 12:49] VITALS: TEMP 97.2
[2023-06-20 13:16] VITALS: RESP 18
[2023-06-20 13:17] VITALS: BP 114/63; PULSE 62
== END 2023-06-20 13:17 | disposition home or self-care (01) ==
LOC: JASU-ENDO 05:16
PROVIDERS: ATTEND Student in an Organized Health Care Education/Training Program
PROC: 0DB78ZX Excision of Stomach, Pylorus, Via Natural or Artificial Opening Endoscopic, Diagnostic (ICD-10-PCS; 2023-06-20)
PROC: 0DB68ZX Excision of Stomach, Via Natural or Artificial Opening Endoscopic, Diagnostic (ICD-10-PCS; 2023-06-20)
PROC: 0DB48ZX Excision of Esophagogastric Junction, Via Natural or Artificial Opening Endoscopic, Diagnostic (ICD-10-PCS; principal; 2023-06-20 11:30)
DX: R12 Heartburn (principal); K29.50 Unspecified chronic gastritis without bleeding; K44.9 Diaphragmatic hernia without obstruction or gangrene; B96.81 Helicobacter pylori [H. pylori] as the cause of diseases classified elsewhere
CPT/HCPCS: 88305-TC; 88342-TC

== ENCOUNTER 2023-07-08 20:16 | Emergency (ER) | payer OTHER ==
[2023-07-08 20:23] VITALS: TEMP 99; BMI 27.4
[2023-07-08] MEDS ORDERED: SODIUM CHLORIDE 0.9% 500 ML INFUS.BAG IV ONE ×2 (20:55→23:18)
[2023-07-08 22:06] LABS: BASO % 0.4 % (0-2.0); EOS % 0.3 % (0-4.5); HEMATOCRIT 47.1 % (35.4-49); HEMOGLOBIN 16.2 GM/dL (11.7-16.9); LYMPH % 8.8 % (8-40); MCH 29.3 pg (25.7-33.7); MCHC 34.4 g/dl (32.0-35.9); MEAN CELL VOLUME 85.2 fl (80-96); MEAN PLT VOLUME 9.3 fl (7.5-11.1); MONO % 7.4 % (3.8-10.2); NEUT % 83.1 % (42.8-82.8); PLATELET COUNT 124 10^3/uL (134-434); RBC 5.53 M/mm3 (4.00-5.60); RDW 13.6 % (11.9-15.9); WHITE BLOOD COUNT 10.2 K/mm3 (4.0-10.0)
[2023-07-08 22:08] LABS: EPI CELLS 1 /uL (0-25.1); HYALINE CASTS 0 /uL (0-3.1); PH,URINE 5.5 (5.0-8.0); URINE APPEARANCE CLEAR; URINE BACTERIA 0 /uL (0-1359); URINE BILIRUBIN NEGATIVE (NEGATIVE); URINE COLOR YELLOW; URINE GLUCOSE (UA) NEGATIVE (NEGATIVE); URINE KETONE NEGATIVE (NEGATIVE); URINE LEUK ESTERASE NEGATIVE (NEGATIVE); URINE NITRITE NEGATIVE (NEGATIVE); URINE PROTEIN TRACE (NEGATIVE); URINE RBC 87 /uL (0-23.9); URINE WBC 6 /uL (0-25.8)
[2023-07-08 22:28] LABS: POTASSIUM 5.1 mmol/L (3.5-5.1)
[2023-07-08 22:30] LABS: CALCIUM 8.6 mg/dL (8.5-10.1)
[2023-07-08 22:32] LABS: ALBUMIN 3.4 g/dl (3.4-5.0); BLOOD UREA NITROGEN 18.1 mg/dL (7-18); MAGNESIUM 1.9 mg/dL (1.8-2.4)
[2023-07-08 22:34] LABS: CREATININE 1.4 mg/dL (0.55-1.3)
[2023-07-08 22:35] LABS: TOT PROT 7.8 g/dl (6.4-8.2)
[2023-07-08 23:18] VITALS: BP 118/77; PULSE 106; RESP 18
[2023-07-08] MEDS ORDERED: IBUPROFEN 600 MG TABLET (FP) PO ONE (23:21)
[2023-07-08] MEDS ORDERED: MAGNESIUM SULFATE IN WATER 2 GM/50 ML IVPB IVPB ONE (23:22)
[2023-07-08] MEDS ORDERED: MAGNESIUM SULF 50% (8.12 MEQ/2 ML-1 GM VIAL) ONE (23:28)
[2023-07-08] MEDS ORDERED: ACETAMINOPHEN INJECTION 100 ML IVPB ONE (23:28)
== END 2023-07-09 01:18 | disposition home or self-care (01) ==
LOC: JER 20:16
PROC: 3E033GC Introduction of Other Therapeutic Substance into Peripheral Vein, Percutaneous Approach (ICD-10-PCS; principal; 2023-07-08)
DX: R53.1 Weakness (principal); R19.7 Diarrhea, unspecified; R50.9 Fever, unspecified; R30.9 Painful micturition, unspecified
CPT/HCPCS: 36415; 80053; 81003; 83735; 84484; 85025; 87086; 93005; 93010; 99284-25

== ENCOUNTER 2023-08-01 04:48 | Day surgery (SDC) | payer OTHER ==
[2023-07-31 12:00] VITALS: BMI 28.3
[2023-08-01 09:45] VITALS: TEMP 98.6
[2023-08-01 09:59] VITALS: RESP 20
[2023-08-01 10:18] VITALS: BP 96/68; PULSE 84
== END 2023-08-01 10:32 | disposition home or self-care (01) ==
LOC: JASU-ENDO 04:48
PROVIDERS: ATTEND Student in an Organized Health Care Education/Training Program
PROC: 0DB48ZX Excision of Esophagogastric Junction, Via Natural or Artificial Opening Endoscopic, Diagnostic (ICD-10-PCS; 2023-08-01)
PROC: 0DB78ZX Excision of Stomach, Pylorus, Via Natural or Artificial Opening Endoscopic, Diagnostic (ICD-10-PCS; 2023-08-01)
PROC: 0DB68ZX Excision of Stomach, Via Natural or Artificial Opening Endoscopic, Diagnostic (ICD-10-PCS; 2023-08-01)
PROC: 0DBN8ZX Excision of Sigmoid Colon, Via Natural or Artificial Opening Endoscopic, Diagnostic (ICD-10-PCS; principal; 2023-08-01 09:15)
DX: Z12.11 Encounter for screening for malignant neoplasm of colon (principal); D12.5 Benign neoplasm of sigmoid colon; K52.9 Noninfective gastroenteritis and colitis, unspecified; K29.50 Unspecified chronic gastritis without bleeding; K21.00 Gastro-esophageal reflux disease with esophagitis, without bleeding
CPT/HCPCS: 88305-TC; 88342-TC

== ENCOUNTER 2024-02-06 22:46 | Emergency (ER) | payer OTHER ==
[2024-02-06 22:57] VITALS: BP 107/68; PULSE 89; RESP 18; TEMP 97.8; BMI 25.8
[2024-02-06] MEDS ORDERED: IBUPROFEN 600 MG TABLET (FP) PO ONE (23:45)
[2024-02-06] MEDS ORDERED: guaiFENesin/D-METHORPHAN HB 10 ML UNIT-DOSE CUPS ONE (23:46)
[2024-02-06] MEDS: guaiFENesin/D-METHORPHAN HB 10 ML UNIT-DOSE CUPS PO ONE (23:50)
[2024-02-06] MEDS: IBUPROFEN 600 MG TABLET (FP) PO ONE (23:50)
== END 2024-02-07 00:29 | disposition home or self-care (01) ==
LOC: JERFT 22:46 → JER 22:46 → JERFT 02-07 00:29
DX: R09.81 Nasal congestion (principal); R05.9 Cough, unspecified; R50.9 Fever, unspecified; J10.1 Influenza due to other identified influenza virus with other respiratory manifestations; Z20.822 Contact with and (suspected) exposure to COVID-19
CPT/HCPCS: 0241U-QW; 71046-TC-FY; 99284-25